=== PATIENT | female | born 1930 | race Caucasian/White ===

== ENCOUNTER → 2016-12-13 | Outpatient (CLI) | payer MEDICARE ==
[~2016-12-13] MED LIST: ALEN70TA5 PO; AMIO200T PO; AMIO200T7 PO; ASPI-152 PO; ASPI-496 PO; ATOR40TA PO; CALC-112 PO; CALCIUM VITAMIN D PO; CARV-39 PO; CARV12.543 PO; CHOL1CRY3 PO; CHOL20003 PO; CLIN300C93 PO; CYAN25009 PO; DIGO125T PO; DIGO125T6 PO; ESOM20CA PO; ESOM40CA PO; ESTR0.6246 PO; ESTR30CR TP; ETAN50DI SQ; ETAN50PE SC; LEVO75CA2 PO; LEVO75TA5 PO; LISI2.5T PO; MECL-76 PO; MECL-85 PO; METH4TAB2 PO; MYCO250C PO; ONDA-39 PO; ONDA4TAB7 PO; OXYC-302; OXYC-302 PO; RIVA15TA PO; RIVA20TA PO; VENL150C PO; vitamin D3 PO; vitamin b12 PO
== END | disposition home or self-care (01) ==
LOC: CFH 12:52
PROVIDERS: ATTEND Internal Medicine Cardiovascular Disease
DX: I08.1 Rheumatic disorders of both mitral and tricuspid valves (principal); J45.909 Unspecified asthma, uncomplicated; Z95.0 Presence of cardiac pacemaker
CPT/HCPCS: 93306

== ENCOUNTER → 2016-12-22 | Outpatient (CLI) | payer MEDICARE ==
[~2016-12-22] MED LIST changes: +CHOL2000 PO; -CHOL20003 PO; +REGADENOSON 0.4 MG/5 ML SYRINGE ONE
== END | disposition home or self-care (01) ==
LOC: CFH 08:28
PROVIDERS: ATTEND Internal Medicine Cardiovascular Disease
DX: Z01.810 Encounter for preprocedural cardiovascular examination (principal); R94.31 Abnormal electrocardiogram [ECG] [EKG]; I10 Essential (primary) hypertension
CPT/HCPCS: 78452; 93017; A9502; J2785

== ENCOUNTER → 2017-02-28 | Outpatient (CLI) | payer MEDICARE ==
[~2017-02-28] MED LIST changes: +AMIO200T42 PO; +ATOR40TA78 PO; +BIOT25005 PO; +CALC-534 PO; +CLIN300C8 PO; -CLIN300C93 PO; +CLOB15CR19 TP; +CYAN100072 PO; +DOCU-131 PO; -ETAN50DI SQ; +ETAN50DI2 SQ; +FLUO20DR3 TP; +FLUO40CR9 TP; +Ferrous Sulfate PO; +HYDR200T PO; +LACT1CAP35 PO; +LISI-170 PO; +MYCO500T PO; -ONDA-39 PO; +ONDA4TAB12 PO; +PRED5TAB PO; -REGADENOSON 0.4 MG/5 ML SYRINGE ONE
[2017-02-28 11:51] LABS: HEMATOCRIT 39.1 % (34.6-47.8); HEMOGLOBIN 12.9 g/dL (11.7-16.4)
[2017-02-28 12:01] LABS: ASPARTATE AMINO TRANSFERASE 16 U/L (15-37); BLOOD UREA NITROGEN 23 mg/dL (7-18)
== END | disposition home or self-care (01) ==
LOC: STAR 10:25
PROVIDERS: ATTEND Orthopaedic Surgery
DX: Z01.818 Encounter for other preprocedural examination (principal); R94.31 Abnormal electrocardiogram [ECG] [EKG]; M16.11 Unilateral primary osteoarthritis, right hip; M81.0 Age-related osteoporosis without current pathological fracture; Z79.899 Other long term (current) drug therapy
CPT/HCPCS: 36415; 80053; 81001; 85025; 87081; 87086; 87147; 93005

== ENCOUNTER 2017-03-08 08:36 | Inpatient (IN) | payer MEDICARE ==
[~2017-03-08] VITALS: Ht 162.6 cm; Wt 70.6 kg
[~2017-03-08 08:36] MED LIST changes: +EPINEPHRINE 1 MG/ML, 1ML ONE; +KETOROLAC 60 MG/2 ML ONE; +NEOSPORIN OINT, 15GM ONE; +ROPIvacaine/PF 0.2%, 20 ML ONE; +SODIUM CHLORIDE 0.9% 50 ML ONE; +TRANEXAMIC ACID 100 MG/ML, 10ML ONE; +morphine SULFATE/PF 1 MG/ML, 10ML ONE
[2017-03-08] MEDS ORDERED: MIDAZOLAM 1 MG/ML, 2ML ONE (08:50)
[2017-03-08] MEDS ORDERED: FENTANYL PF 100 MCG/2ML ONE ×2 (08:50→11:11)
[2017-03-08] MEDS ORDERED: LACTATED RINGERS 1,000 ML IV SCH (09:00)
[2017-03-08 09:04] VITALS: BP 158/72
[2017-03-08] MEDS ORDERED: VANCOMYCIN PER PHARMACY MC ONE (09:07)
[2017-03-08] MEDS ORDERED: ACETAMINOPHEN 500 MG TABLET ONE (09:12)
[2017-03-08] MEDS ORDERED: OxyconTIN ER 10 MG TAB.ER ONE (09:12)
[2017-03-08] MEDS: OxyconTIN ER 20 MG TAB.ER PO SCH ×2 (09:19→21:21)
[2017-03-08] MEDS ORDERED: methylPREDNISolone SOD SUCC 125 MG/2 ML ONE (09:26)
[2017-03-08] MEDS ORDERED: CEFAZOLIN 1,000 MG ONE (09:29)
[2017-03-08] MEDS ORDERED: PROPOFOL 10 MG/ML, 20ML ONE (09:29)
[2017-03-08] MEDS ORDERED: ROCURONIUM 10 MG/ML ONE (09:29)
[2017-03-08] MEDS ORDERED: GLYCOPYRROLATE 0.2MG/1ML, 5ML ONE (09:29)
[2017-03-08] MEDS ORDERED: ONDANSETRON 2MG/ML, 2ML ONE (09:29)
[2017-03-08] MEDS ORDERED: DEXAMETHASONE 4 MG/ML, 1ML ONE (09:29)
[2017-03-08] MEDS ORDERED: NEOSTIGMINE 1 MG/ML, 10ML ONE (09:29)
[2017-03-08] MEDS ORDERED: SUCCINYLCHOLINE 20 MG/ML, 10ML ONE (09:29)
[2017-03-08] MEDS ORDERED: ACETAMINOPHEN 500 MG TABLET PO ONE (09:30)
[2017-03-08] MEDS ORDERED: VANCOMYCIN 1,000 MG ONE (09:51)
[2017-03-08] MEDS ORDERED: VANCOMYCIN 1,100 MG in SODIUM CHLORIDE 0.9% 250 ML IV ONE (10:00)
[2017-03-08] MEDS ORDERED: ACETAMINOPHEN 650 MG/20.3 ML UDC ONE (11:10)
[2017-03-08] MEDS ORDERED: hydrALAzine 20 MG/ML, 1ML ONE (11:11)
[2017-03-08] MEDS ORDERED: OXYcodone 5 MG/5 ML ORAL.SOL UDC ONE (11:11)
[2017-03-08] MEDS ORDERED: EPHEDRINE 50 MG/ML, 1ML IVPush PRN (11:30)
[2017-03-08] MEDS ORDERED: MIDAZOLAM 1 MG/ML, 2ML IV PRN (11:30)
[2017-03-08] MEDS ORDERED: OXYcodone 5 MG/5 ML ORAL.SOL UDC PO PRN (11:30)
[2017-03-08] MEDS ORDERED: DIAZEPAM 5 MG/ML, 2ML IVPush PRN (11:30)
[2017-03-08] MEDS ORDERED: LABETALOL 5MG/ML, 20ML IV PRN (11:30)
[2017-03-08] MEDS ORDERED: PROMETHAZINE 25 MG/ML, 1ML IV PRN (11:30)
[2017-03-08] MEDS ORDERED: FENTANYL PF 100 MCG/2ML IV PRN (11:30)
[2017-03-08] MEDS ORDERED: MEPERIDINE/PF 25MG/0.5ML IVPush PRN (11:30)
[2017-03-08] MEDS ORDERED: HYDROmorphone 1 MG/ML, 1ML IV PRN (11:30)
[2017-03-08] MEDS ORDERED: ALBUTEROL SULFATE 2.5 MG/3 ML NPPB PRN (11:30)
[2017-03-08] MEDS ORDERED: ONDANSETRON 2MG/ML, 2ML IVPush PRN ×2 (11:30→13:30)
[2017-03-08] MEDS ORDERED: METOPROLOL 1 MG/ML, 5ML IV PRN (11:30)
[2017-03-08] MEDS ORDERED: hydrALAzine 20 MG/ML, 1ML IV PRN (11:30)
[2017-03-08] MEDS ORDERED: HYDROcodone/APAP 7.5-325MG/15ML UDC PO PRN ×2 (11:30→13:30)
[2017-03-08 13:00] VITALS: BP 131/62
[2017-03-08] MEDS ORDERED: BISACODYL 10 MG SUPP PR PRN (13:30)
[2017-03-08] MEDS ORDERED: SENNA/DOCUSATE TABLET PO PRN (13:30)
[2017-03-08] MEDS ORDERED: ALUMINUM/MAG/SIMETHICONE 30 ML UDC PO PRN (13:30)
[2017-03-08] MEDS ORDERED: MAGNESIUM HYDROXIDE 8%, 30ML UDC PO PRN (13:30)
[2017-03-08] MEDS ORDERED: ACETAMINOPHEN 325 MG TABLET PO PRN (13:30)
[2017-03-08 19:37] VITALS: BP 141/66
[2017-03-08] MEDS: CEFAZOLIN PMX 1GM/50ML 50 ML IVPB SCH (19:40)
[2017-03-08] MEDS: POTASSIUM CHLORIDE 10 MEQ in SODIUM CHLORIDE 0.9% 1,000 ML IV SCH (19:41)
[2017-03-08] MEDS: LISINOPRIL 5 MG TABLET PO SCH (21:22)
[2017-03-08] MEDS: DOCUSATE 100 MG CAPSULE PO SCH (21:22)
[2017-03-08] MEDS: HYDROXYCHLOROQUINE 200 MG TABLET PO SCH (21:22)
[2017-03-09] MEDS: OXYcodone IR 5MG TABLET PO PRN ×2 (01:14→01:21)
[2017-03-09 03:06] VITALS: BP 128/64
[2017-03-09] MEDS: CEFAZOLIN PMX 1GM/50ML 50 ML IVPB SCH (03:54)
[2017-03-09] MEDS: LEVOTHYROXINE 75 MCG TABLET PO SCH (05:25)
[2017-03-09] MEDS: ENOXAPARIN 40 MG/0.4 ML SQ SCH (05:26)
[2017-03-09 08:32] VITALS: BP 107/57
[2017-03-09] MEDS: MULTIVITAMINS/MINERALS TABLET PO SCH (09:22)
[2017-03-09] MEDS: AMIODARONE 200 MG TABLET PO SCH (09:22)
[2017-03-09] MEDS: DOCUSATE 100 MG CAPSULE PO SCH ×2 (09:22→21:28)
[2017-03-09] MEDS: DIGOXIN 0.125 MG TABLET PO SCH (09:22)
[2017-03-09] MEDS: HYDROXYCHLOROQUINE 200 MG TABLET PO SCH ×2 (09:23→21:28)
[2017-03-09] MEDS: OxyconTIN ER 20 MG TAB.ER PO SCH ×2 (09:27→21:28)
[2017-03-09] MEDS: POTASSIUM CHLORIDE 10 MEQ in SODIUM CHLORIDE 0.9% 1,000 ML IV SCH (09:28)
[2017-03-09 09:34] VITALS: BP 120/56
[2017-03-09] MEDS: KETOROLAC 30 MG/1 ML IV SCH ×2 (13:52→21:28)
[2017-03-09 15:54] VITALS: BP 101/57
[2017-03-09 19:20] VITALS: BP 150/61
[2017-03-09] MEDS: LISINOPRIL 5 MG TABLET PO SCH (21:29)
[2017-03-10 01:51] VITALS: BP 135/70
[2017-03-10] MEDS: POTASSIUM CHLORIDE 10 MEQ in SODIUM CHLORIDE 0.9% 1,000 ML IV SCH (05:42)
[2017-03-10] MEDS: KETOROLAC 30 MG/1 ML IV SCH (05:42)
[2017-03-10] MEDS: LEVOTHYROXINE 75 MCG TABLET PO SCH (05:48)
[2017-03-10] MEDS: ENOXAPARIN 40 MG/0.4 ML SQ SCH (05:49)
[2017-03-10 07:06] VITALS: BP 104/56
[2017-03-10] MEDS: AMIODARONE 200 MG TABLET PO SCH (09:08)
[2017-03-10] MEDS: MULTIVITAMINS/MINERALS TABLET PO SCH (09:09)
[2017-03-10] MEDS: OxyconTIN ER 20 MG TAB.ER PO SCH ×2 (09:09→21:04)
[2017-03-10] MEDS: DOCUSATE 100 MG CAPSULE PO SCH ×2 (09:09→21:03)
[2017-03-10] MEDS: HYDROXYCHLOROQUINE 200 MG TABLET PO SCH ×2 (09:09→21:00)
[2017-03-10] MEDS: DIGOXIN 0.125 MG TABLET PO SCH (09:09)
[2017-03-10 12:37] VITALS: BP 105/56
[2017-03-10 19:20] VITALS: BP 107/61
[2017-03-10] MEDS: LISINOPRIL 5 MG TABLET PO SCH (21:03)
[2017-03-11] MEDS: POTASSIUM CHLORIDE 10 MEQ in SODIUM CHLORIDE 0.9% 1,000 ML IV SCH (01:01)
[2017-03-11 02:21] VITALS: BP 108/64
[2017-03-11] MEDS: ENOXAPARIN 40 MG/0.4 ML SQ SCH (05:37)
[2017-03-11] MEDS: LEVOTHYROXINE 75 MCG TABLET PO SCH (05:37)
[2017-03-11 08:06] VITALS: BP 113/62
[2017-03-11] MEDS: DOCUSATE 100 MG CAPSULE PO SCH (09:01)
[2017-03-11] MEDS: HYDROXYCHLOROQUINE 200 MG TABLET PO SCH (09:01)
[2017-03-11] MEDS: DIGOXIN 0.125 MG TABLET PO SCH (09:01)
[2017-03-11] MEDS: OxyconTIN ER 20 MG TAB.ER PO SCH (09:01)
[2017-03-11] MEDS: AMIODARONE 200 MG TABLET PO SCH (09:01)
[2017-03-11] MEDS: MULTIVITAMINS/MINERALS TABLET PO SCH (09:01)
[2017-03-11 11:08] VITALS: BP 109/61
[2017-03-13] MEDS ORDERED: ALENDRONATE 70 MG TABLET PO SCH (06:30)
== END 2017-03-11 12:18 | DRG 470 ==
LOC: ORIP 08:36 → 4NOR 12:50
PROVIDERS: ADMIT Orthopaedic Surgery; ATTEND Orthopaedic Surgery
PROC: 0SR90JA Replacement of Right Hip Joint with Synthetic Substitute, Uncemented, Open Approach (ICD-10-PCS; principal; 2017-03-08 09:00)
DX: M16.11 Unilateral primary osteoarthritis, right hip (principal); Z88.6 Allergy status to analgesic agent
CPT/HCPCS: 36415; 86850; 86900; C1713; J0171; J0690; J1100; J1650; J1885; J2250; J2274; J2405; J2704; J2710; J2795; J3010; J3370; J3480; J3490; C1776; J0330; J0360; J2930; J7030; J7120

== ENCOUNTER → 2018-01-26 | Outpatient (CLI) | payer MEDICARE ==
[~2018-01-26] MED LIST changes: -DIGO125T6 PO; +DIGO125T81 PO; -EPINEPHRINE 1 MG/ML, 1ML ONE; -HYDR200T PO; +HYDR200T72 PO; -KETOROLAC 60 MG/2 ML ONE; -NEOSPORIN OINT, 15GM ONE; -ROPIvacaine/PF 0.2%, 20 ML ONE; -SODIUM CHLORIDE 0.9% 50 ML ONE; -TRANEXAMIC ACID 100 MG/ML, 10ML ONE; -morphine SULFATE/PF 1 MG/ML, 10ML ONE
== END | disposition home or self-care (01) ==
LOC: CFH 09:44
PROVIDERS: ATTEND Internal Medicine Cardiovascular Disease
DX: I08.1 Rheumatic disorders of both mitral and tricuspid valves (principal)
CPT/HCPCS: 93306

== ENCOUNTER 2020-06-26 10:06 | Day surgery (SDC) | payer MEDICARE ==
[~2020-06-26] VITALS: Ht 163.8 cm; Wt 61.4 kg
[~2020-06-26 10:06] MED LIST changes: -ALEN70TA5 PO; +ALEN70TA77 PO; -CLIN300C8 PO; +CLIN300C9 PO; -DIGO125T PO; +DIGO125T85 PO; +ONDA-89 PO; -ONDA4TAB12 PO
[2020-06-26 10:58] VITALS: BP 135/67
[2020-06-26] MEDS ORDERED: SODIUM CHLORIDE 0.9% 1,000 ML IV ONE (11:00)
[2020-06-26] MEDS ORDERED: PRED20TA PO (11:29)
[2020-06-26] MEDS ORDERED: FENO160T PO (11:29)
[2020-06-26] MEDS ORDERED: OMEP40CA42 PO (11:29)
[2020-06-26] MEDS ORDERED: ADAL40KI SQ (11:29)
[2020-06-26] MEDS ORDERED: PROPOFOL 10 MG/ML, 20ML ONE (13:35)
== END 2020-06-26 15:20 | disposition home or self-care (01) ==
LOC: CACL 10:06
PROVIDERS: ATTEND Internal Medicine Cardiovascular Disease
DX: R93.1 Abnormal findings on diagnostic imaging of heart and coronary circulation (principal); I35.8 Other nonrheumatic aortic valve disorders; I25.10 Atherosclerotic heart disease of native coronary artery without angina pectoris; I25.2 Old myocardial infarction; I10 Essential (primary) hypertension; M10.9 Gout, unspecified; I63.9 Cerebral infarction, unspecified; M06.9 Rheumatoid arthritis, unspecified; E78.5 Hyperlipidemia, unspecified; E66.3 Overweight; Z68.22 Body mass index [BMI] 22.0-22.9, adult; Z20.822 Contact with and (suspected) exposure to COVID-19; Z79.4 Long term (current) use of insulin; Z79.890 Hormone replacement therapy; Z79.891 Long term (current) use of opiate analgesic; Z79.899 Other long term (current) drug therapy; Z86.73 Personal history of transient ischemic attack (TIA), and cerebral infarction without residual deficits; Z88.5 Allergy status to narcotic agent; Z95.0 Presence of cardiac pacemaker
CPT/HCPCS: 87635; 93312; 93321; 93325; J2704

== ENCOUNTER → 2020-08-22 | Outpatient (CLI) | payer MEDICARE ==
[~2020-08-22] VITALS: Ht 162.6 cm; Wt 61.4 kg
[~2020-08-22] MED LIST changes: +ADAL40KI SQ; +FENO160T PO; +OMEP40CA42 PO; -OXYC-302; -OXYC-302 PO; +OXYC1TAB14; +OXYC1TAB14 PO; +PRED20TA PO; +SODIUM CHLORIDE 0.9% 1,000 ML IV ONE
[2020-08-22 11:35] VITALS: BP 145/68
== END | disposition home or self-care (01) ==
LOC: CVU 10:58
PROVIDERS: ATTEND Internal Medicine Cardiovascular Disease
DX: Z20.822 Contact with and (suspected) exposure to COVID-19 (principal)
CPT/HCPCS: 87635